=== PATIENT | female | born 1995 | race African-American/Black ===

== ENCOUNTER 2020-04-03 20:27 | Observation (INO) | payer MEDICAID, OTHER ==
[~2020-04-03] VITALS: Ht 167.6 cm; Wt 90.3 kg
[2020-04-03] MEDS ORDERED: PRENTAB40 OR (22:35)
[2020-04-03 22:49] LABS: Amphetamine Screen, Urine NEGATIVE (NEGATIVE); Barbiturate Scree,Urine NEGATIVE (NEGATIVE); Benzodiazephine Screen, Urine NEGATIVE (NEGATIVE); Cannabinoid Screen, Urine NEGATIVE (NEGATIVE); Cocaine Screen, Urine NEGATIVE (NEGATIVE); Opiate Scree,Urine NEGATIVE (NEGATIVE); Phencyclidine Screen, Urine NEGATIVE (NEGATIVE)
[2020-04-03 22:57] LABS: Alcohol, Urine < 3.0 mg/dL (0-10)
== END 2020-04-03 22:49 | disposition home or self-care (01) ==
LOC: LDRP 20:27
PROVIDERS: ADMIT Obstetrics & Gynecology; ATTEND Obstetrics & Gynecology
DX: O36.5930 Maternal care for other known or suspected poor fetal growth, third trimester, not applicable or unspecified (principal); Z3A.38 38 weeks gestation of pregnancy; Z79.899 Other long term (current) drug therapy
CPT/HCPCS: 59025; 76818; 80307; 81002; G0378

== ENCOUNTER 2020-04-06 09:50 | Observation (INO) | payer MEDICAID ==
[~2020-04-06 09:50] MED LIST: PRENTAB40 OR
== END 2020-04-06 11:50 | disposition home or self-care (01) ==
LOC: LDRP 09:50
PROVIDERS: ADMIT Obstetrics & Gynecology; ATTEND Obstetrics & Gynecology
DX: O36.5930 Maternal care for other known or suspected poor fetal growth, third trimester, not applicable or unspecified (principal); Z3A.38 38 weeks gestation of pregnancy
CPT/HCPCS: 59025; 76818; 81002; G0378

== ENCOUNTER 2020-04-10 09:41 | Observation (INO) | payer MEDICAID ==
[2020-04-10 12:52] LABS: Basophils # (auto) 0 10 ^3/uL (0-0.2); Basophils % (auto) 0.3 % (0.0-2.0); Eosinophils # (auto) 0 10 ^3/uL (0-0.8); Eosinophils % (auto) 0.5 % (0.0-7.0); Hematocrit 37.3 % (36.0-46.0); Hemoglobin 12.7 g/dL (12.2-16.2); Lymphocytes # (auto) 1.3 10 ^3/uL (0.4-5.4); Lymphocytes % (auto) 18.4 % (10.0-50.0); Mean Corpuscular Hemoglobin 32.5 pg (28.0-32.0); Mean Corpuscular Volume 95.5 fL (80.0-100.0); Monocytes # (auto) 0.6 10 ^3/uL (0-1.3); Monocytes % (auto) 8.8 % (0.0-12.0); Neutrophils # (auto) 5.1 10 ^3/uL (1.6-8.6); Platelet Count (auto) 205 10^3/uL (140-450); Red Cell Distribution Width 12.8 % (11.8-14.3); White Blood Cell 7.1 10^3/uL (4.4-10.8)
[2020-04-10 13:10] LABS: INR 0.96 (0.9-1.15); Partial Thromboplastin Time 28.2 sec (23.0-31.2)
[2020-04-10 13:11] LABS: Albumin 2.8 g/dL (3.4-5.0); Calcium 8.8 mg/dL (8.5-10.1); Potassium 3.8 mmol/L (3.5-5.1)
[2020-04-10 13:14] LABS: BUN/Creatinine Ratio 11.5; Bilirubin, Total 0.2 mg/dL (0.2-1.0); Total Protein 6.6 g/dL (6.4-8.2); Uric Acid 3.7 mg/dL (2.6-6.0)
[2020-04-10 14:25] LABS: Alcohol, Urine < 3.0 mg/dL (0-10); Amphetamine Screen, Urine NEGATIVE (NEGATIVE); Barbiturate Scree,Urine NEGATIVE (NEGATIVE); Benzodiazephine Screen, Urine NEGATIVE (NEGATIVE); Cannabinoid Screen, Urine NEGATIVE (NEGATIVE); Cocaine Screen, Urine NEGATIVE (NEGATIVE); Opiate Scree,Urine NEGATIVE (NEGATIVE); Phencyclidine Screen, Urine NEGATIVE (NEGATIVE)
[2020-04-10 15:11] LABS: Urine Bacteria FEW /hpf (None Seen); Urine Blood Negative /uL (Negative); Urine Mucus FEW (None Seen); Urine Specific Gravity 1.017 (1.001-1.035); Urine WBC 1 /hpf (0 - 5)
== END 2020-04-10 13:45 | disposition home or self-care (01) ==
LOC: LDRP 09:41
PROVIDERS: ADMIT Obstetrics & Gynecology; ATTEND Obstetrics & Gynecology
DX: O36.5930 Maternal care for other known or suspected poor fetal growth, third trimester, not applicable or unspecified (principal); O62.9 Abnormality of forces of labor, unspecified; Z3A.39 39 weeks gestation of pregnancy; Z87.891 Personal history of nicotine dependence; Z79.899 Other long term (current) drug therapy
CPT/HCPCS: 36415; 59025; 76818; 80053; 80307; 81001; 81002; 84550; 85025; 85610; 85730; G0378

== ENCOUNTER 2020-04-13 08:29 | Observation (INO) | payer MEDICAID ==
[2020-04-13 10:42] LABS: Basophils # (auto) 0 10 ^3/uL (0-0.2); Basophils % (auto) 0.5 % (0.0-2.0); Eosinophils # (auto) 0 10 ^3/uL (0-0.8); Eosinophils % (auto) 0.6 % (0.0-7.0); Hematocrit 37.3 % (36.0-46.0); Lymphocytes # (auto) 1.1 10 ^3/uL (0.4-5.4); Lymphocytes % (auto) 15.9 % (10.0-50.0); Mean Corpuscular Hemoglobin 33.1 pg (28.0-32.0); Mean Corpuscular Hgb Conc. 34.8 g/dL (32.0-36.0); Mean Corpuscular Volume 95.3 fL (80.0-100.0); Monocytes # (auto) 0.6 10 ^3/uL (0-1.3); Monocytes % (auto) 8.9 % (0.0-12.0); Neutrophils % (auto) 74.1 % (37.0-80.0); Nucleated Red Blood Cells % 0.1 %; Platelet Count (auto) 194 10^3/uL (140-450); Red Blood Cells 3.91 10^6/uL (4.0-5.20); Red Cell Distribution Width 12.9 % (11.8-14.3); White Blood Cell 6.7 10^3/uL (4.4-10.8)
[2020-04-13 10:55] LABS: Albumin 2.6 g/dL (3.4-5.0); Calcium 8.6 mg/dL (8.5-10.1); Potassium 3.9 mmol/L (3.5-5.1); Uric Acid 3.8 mg/dL (2.6-6.0)
[2020-04-13 10:57] LABS: INR 0.95 (0.9-1.15); Partial Thromboplastin Time 28.2 sec (23.0-31.2)
[2020-04-13 10:58] LABS: Bilirubin, Total 0.3 mg/dL (0.2-1.0); Total Protein 6.6 g/dL (6.4-8.2)
[2020-04-13 11:31] LABS: Urine Bacteria MOD /hpf (None Seen); Urine Blood Negative /uL (Negative); Urine Hyaline Cast MOD /lpf (0 - 2); Urine Mucus FEW (None Seen); Urine Specific Gravity 1.021 (1.001-1.035); Urine WBC 73 /hpf (0 - 5)
== END 2020-04-13 11:30 | disposition home or self-care (01) ==
LOC: LDRP 08:29
PROVIDERS: ADMIT Specialist; ATTEND Specialist
DX: O36.5930 Maternal care for other known or suspected poor fetal growth, third trimester, not applicable or unspecified (principal); O62.9 Abnormality of forces of labor, unspecified; O12.03 Gestational edema, third trimester; Z87.891 Personal history of nicotine dependence; Z3A.39 39 weeks gestation of pregnancy; Z79.899 Other long term (current) drug therapy
CPT/HCPCS: 36415; 59025; 76818; 80053; 81001; 81002; 84550; 85025; 85610; 85730; G0378

== ENCOUNTER 2020-04-15 10:40 | Inpatient (IN) | payer MEDICAID ==
[~2020-04-15] VITALS: Ht 167.6 cm; Wt 91.2 kg
[2020-04-15] MEDS ORDERED: WITCH HAZEL-GLYCERIN PAD TOP PRN (11:00)
[2020-04-15] MEDS ORDERED: LIDOCAINE 2%HCL (LOCAL ANESTH.) INJ 20ML MDV IJ PRN (11:00)
[2020-04-15] MEDS ORDERED: LACT. RINGERS/OXYTOCIN 20UNITS 1,000 ML IV PRN (11:00)
[2020-04-15] MEDS ORDERED: PHISODERM TOP SOLN 240ML BTL TOP PRN (11:00)
[2020-04-15] MEDS ORDERED: DERMOPLAST 60ML BOTTLE TOP PRN (11:00)
[2020-04-15] MEDS ORDERED: PROMETHAZINE HCL 25 MG/ML 1ML IV PRN (11:00)
[2020-04-15] MEDS ORDERED: BUTORPHANOL TARTRATE 2 MG/1 ML VIAL IV PRN ×2 (11:00)
[2020-04-15 11:55] LABS: Basophils # (auto) 0 10 ^3/uL (0-0.2); Basophils % (auto) 0.6 % (0.0-2.0); Eosinophils # (auto) 0.1 10 ^3/uL (0-0.8); Eosinophils % (auto) 0.8 % (0.0-7.0); Hematocrit 37.3 % (36.0-46.0); Lymphocytes # (auto) 1.3 10 ^3/uL (0.4-5.4); Lymphocytes % (auto) 19.7 % (10.0-50.0); Mean Corpuscular Hemoglobin 33.3 pg (28.0-32.0); Mean Corpuscular Volume 95.2 fL (80.0-100.0); Monocytes # (auto) 0.6 10 ^3/uL (0-1.3); Neutrophils # (auto) 4.6 10 ^3/uL (1.6-8.6); Neutrophils % (auto) 69.9 % (37.0-80.0); Nucleated Red Blood Cells % 0.1 %; Platelet Count (auto) 196 10^3/uL (140-450); Red Blood Cells 3.92 10^6/uL (4.0-5.20); Red Cell Distribution Width 13.1 % (11.8-14.3); White Blood Cell 6.6 10^3/uL (4.4-10.8)
[2020-04-15 11:55] LABS: Urine Bacteria FEW /hpf (None Seen); Urine Blood Negative /uL (Negative); Urine Mucus FEW (None Seen); Urine Specific Gravity 1.024 (1.001-1.035); Urine WBC 2 /hpf (0 - 5)
[2020-04-15 12:10] LABS: INR 0.93 (0.9-1.15); Partial Thromboplastin Time 27.8 sec (23.0-31.2)
[2020-04-15 12:16] LABS: Albumin 2.7 g/dL (3.4-5.0); Calcium 8.6 mg/dL (8.5-10.1); Potassium 4.1 mmol/L (3.5-5.1)
[2020-04-15 12:20] LABS: Alcohol, Urine < 3.0 mg/dL (0-10); Amphetamine Screen, Urine NEGATIVE (NEGATIVE); Barbiturate Scree,Urine NEGATIVE (NEGATIVE); Benzodiazephine Screen, Urine NEGATIVE (NEGATIVE); Cannabinoid Screen, Urine NEGATIVE (NEGATIVE); Cocaine Screen, Urine NEGATIVE (NEGATIVE); Opiate Scree,Urine NEGATIVE (NEGATIVE); Phencyclidine Screen, Urine NEGATIVE (NEGATIVE)
[2020-04-15 12:20] LABS: BUN/Creatinine Ratio 15.5; Bilirubin, Total 0.2 mg/dL (0.2-1.0); Total Protein 6.6 g/dL (6.4-8.2)
[2020-04-15] MEDS: LACTATED RINGER'S 1,000 ML IV SCH ×2 (12:21→20:46)
[2020-04-15] MEDS ORDERED: LABETALOL HCL 200 MG TAB PO ONE (13:30)
[2020-04-15] MEDS: miSOPROStol 50 MCG per PRE-CUT 1/2 TAB PO PRN ×3 (13:32→21:26)
[2020-04-15] MEDS: LABETALOL HCL 200 MG TAB PO SCH (22:12)
[2020-04-16] MEDS: miSOPROStol 50 MCG per PRE-CUT 1/2 TAB PO PRN (01:32)
[2020-04-16] MEDS: LACTATED RINGER'S 1,000 ML IV SCH ×2 (03:59→11:00)
[2020-04-16] MEDS: LACT. RINGERS/OXYTOCIN 20UNITS 1,000 ML IV SCH (07:41)
[2020-04-16] MEDS: LABETALOL HCL 200 MG TAB PO SCH ×2 (09:37→22:22)
[2020-04-16] MEDS ORDERED: DINOPROSTONE 10MG VAG SUPP PV ONE (12:15)
[2020-04-16 23:33] LABS: Basophils # (auto) 0 10 ^3/uL (0-0.2); Basophils % (auto) 0.5 % (0.0-2.0); Eosinophils # (auto) 0 10 ^3/uL (0-0.8); Eosinophils % (auto) 0.3 % (0.0-7.0); Hematocrit 37.2 % (36.0-46.0); Hemoglobin 12.9 g/dL (12.2-16.2); Lymphocytes # (auto) 1.2 10 ^3/uL (0.4-5.4); Lymphocytes % (auto) 17.1 % (10.0-50.0); Mean Corpuscular Hgb Conc. 34.7 g/dL (32.0-36.0); Mean Corpuscular Volume 95.3 fL (80.0-100.0); Monocytes # (auto) 0.7 10 ^3/uL (0-1.3); Neutrophils # (auto) 4.9 10 ^3/uL (1.6-8.6); Neutrophils % (auto) 72.1 % (37.0-80.0); Platelet Count (auto) 200 10^3/uL (140-450); Red Blood Cells 3.91 10^6/uL (4.0-5.20); Red Cell Distribution Width 13.2 % (11.8-14.3); White Blood Cell 6.9 10^3/uL (4.4-10.8)
[2020-04-16 23:48] LABS: Albumin 2.7 g/dL (3.4-5.0); Calcium 8.7 mg/dL (8.5-10.1); Potassium 3.8 mmol/L (3.5-5.1); Uric Acid 4.1 mg/dL (2.6-6.0)
[2020-04-16 23:51] LABS: Bilirubin, Total 0.4 mg/dL (0.2-1.0); Total Protein 6.4 g/dL (6.4-8.2)
[2020-04-17] MEDS: LACT. RINGERS/OXYTOCIN 20UNITS 1,000 ML IV SCH (00:28)
[2020-04-17 01:36] LABS: Urine Bacteria FEW /hpf (None Seen); Urine Blood 3+ /uL (Negative); Urine Mucus FEW (None Seen); Urine Specific Gravity 1.006 (1.001-1.035); Urine WBC 13 /hpf (0 - 5)
[2020-04-17 06:06] LABS: RPR Non Reactive (Non Reactive)
[2020-04-17] MEDS: LABETALOL HCL 200 MG TAB PO SCH (21:37)
[2020-04-18] VITALS (8 sets, daily range): BP systolic 115–143; BP diastolic 65–113
[2020-04-18] MEDS ORDERED: ROPIVACAINE HCL 200 ML EPI SCH ×2 (08:00→09:15)
[2020-04-18] MEDS ORDERED: NALOXONE HCL 0.4 MG/ML VIAL IV ONE ×2 (08:00→09:15)
[2020-04-18] MEDS ORDERED: fentaNYL CITRATE 100 MCG/2 ML VL IV ONE ×2 (08:00→09:15)
[2020-04-18] MEDS ORDERED: LIDOCAINE HCL 2 %PF INJ 10ML AMP IJ ONE ×2 (08:00→13:09)
[2020-04-18] MEDS ORDERED: ePHEDrine SULFATE 50 MG/ML AMP IV ONE ×2 (08:00→09:15)
[2020-04-18] MEDS ORDERED: LACTATED RINGER'S 1,000 ML IV ONE (09:15)
[2020-04-18] MEDS ORDERED: LIDOCAINE 2%HCL (LOCAL ANESTH.) INJ 20ML MDV IJ ONE (09:15)
[2020-04-18] MEDS ORDERED: LACTATED RINGER'S 1,000 ML IV SCH (10:00)
[2020-04-18] MEDS ORDERED: MAGNESIUM SULFATE 40MG/ML 1,000 ML IV SCH (10:00)
[2020-04-18] MEDS: LABETALOL HCL 200 MG TAB PO SCH (10:00)
[2020-04-18] MEDS ORDERED: MAGNESIUM SULFATE 100 ML IV ONE ×2 (10:00→10:07)
[2020-04-18] MEDS ORDERED: MAGNESIUM SULFATE 40MG/ML 1,000 ML IV ONE (10:07)
[2020-04-18 10:53] LABS: Basophils # (auto) 0 10 ^3/uL (0-0.2); Basophils % (auto) 0.6 % (0.0-2.0); Eosinophils # (auto) 0 10 ^3/uL (0-0.8); Eosinophils % (auto) 0.3 % (0.0-7.0); Hematocrit 35.8 % (36.0-46.0); Hemoglobin 12.5 g/dL (12.2-16.2); Lymphocytes % (auto) 12.7 % (10.0-50.0); Mean Corpuscular Hemoglobin 33.3 pg (28.0-32.0); Mean Corpuscular Hgb Conc. 34.8 g/dL (32.0-36.0); Mean Corpuscular Volume 95.8 fL (80.0-100.0); Monocytes # (auto) 0.6 10 ^3/uL (0-1.3); Neutrophils # (auto) 6.2 10 ^3/uL (1.6-8.6); Neutrophils % (auto) 78.4 % (37.0-80.0); Nucleated Red Blood Cells % 0.1 %; Platelet Count (auto) 184 10^3/uL (140-450); Red Blood Cells 3.74 10^6/uL (4.0-5.20); Red Cell Distribution Width 13.5 % (11.8-14.3); White Blood Cell 7.9 10^3/uL (4.4-10.8)
[2020-04-18 10:55] LABS: Urine WBC None Seen /hpf (0 - 5)
[2020-04-18 11:08] LABS: Urine Bacteria NONE SEEN /hpf (None Seen); Urine Blood TRACE /uL (Negative); Urine Mucus FEW (None Seen); Urine Specific Gravity 1.007 (1.001-1.035)
[2020-04-18 11:10] LABS: INR 0.94 (0.9-1.15); Partial Thromboplastin Time 30.2 sec (23.0-31.2)
[2020-04-18 11:11] LABS: Albumin 2.5 g/dL (3.4-5.0); Calcium 8.6 mg/dL (8.5-10.1); Potassium 3.7 mmol/L (3.5-5.1)
[2020-04-18 11:14] LABS: BUN/Creatinine Ratio 6.8; Bilirubin, Total 0.4 mg/dL (0.2-1.0); Uric Acid 4.3 mg/dL (2.6-6.0)
[2020-04-18 11:24] LABS: Protein, Urine 12.3 mg/dL (0.0-11.9)
[2020-04-18] MEDS ORDERED: ceFAZolin 1GM 2 GM in D5W 5% 100 ML IV ONE (15:00)
[2020-04-18] MEDS ORDERED: TETRACAINE 1% INJ 2 ML VIAL IJ ONE (15:10)
[2020-04-18] MEDS ORDERED: oxyTOCIN 10 UNIT/ML 10ML VIAL ONE (15:14)
[2020-04-18] MEDS ORDERED: fentaNYL CITRATE 100 MCG/2 ML VL ONE (15:18)
[2020-04-18] MEDS ORDERED: MORPHINE SULF(PF) 0.5MG/ML 10ML VIAL ONE (15:18)
[2020-04-18] MEDS ORDERED: ceFAZolin 1GM/50ML 100 ML IV ONE (15:19)
[2020-04-18] MEDS ORDERED: ePHEDrine SULFATE 50 MG/ML AMP ONE (15:19)
[2020-04-18] MEDS ORDERED: GLYCOPYRROLATE 0.2 MG/ML 1ML VIAL ONE (15:19)
[2020-04-18] MEDS ORDERED: ONDANSETRON HCL 4 MG/2 ML VIAL ONE (15:19)
[2020-04-18] MEDS ORDERED: KETOROLAC TROMETH 30 MG/ML 1ML VIAL ONE (15:19)
[2020-04-18] MEDS ORDERED: SUCCINYLCHOLINE CHLORIDE 20 MG/ML 10ML VIAL IV ONE (15:26)
[2020-04-18] MEDS ORDERED: LACT. RINGERS/OXYTOCIN 20UNITS 1,000 ML IV ONE (16:30)
[2020-04-18] MEDS ORDERED: MORPHINE SULFATE 4 MG/ML SYR/VIAL IV PRN (16:30)
[2020-04-18] MEDS ORDERED: ONDANSETRON HCL 4 MG/2 ML VIAL IV PRN ×2 (16:30→17:00)
[2020-04-18] MEDS ORDERED: ceFAZolin 1GM/50ML 50 ML IV SCH (16:30)
[2020-04-18] MEDS ORDERED: DexAMETHasone SOD PHOS 10MG/1ML VIAL INJ IV PRN (17:00)
[2020-04-18] MEDS ORDERED: KETOROLAC TROMETH 30 MG/ML 1ML VIAL IV PRN (17:00)
[2020-04-18] MEDS ORDERED: NALOXONE HCL 0.4 MG/ML VIAL IV PRN (17:00)
[2020-04-18] MEDS ORDERED: diphenhdrAMINE HCL 50 MG/1 ML VL IV PRN (17:00)
[2020-04-18] MEDS ORDERED: NALBUPHINE HCL 10 MG/1ml INJECTION SUBCUT ONE (17:00)
--- NOTE | 2020-04-18 18:00 | NUR ---
SPOKE WITH DR GAONA REGARDING MAGNESIUM, ORDER RECEIVED TO HOLD UNTIL DBP >80.
[2020-04-18] MEDS ORDERED: ACETAMINOPHEN IV 1000 MG/100ML (10MG/ML) IV ONE (20:11)
[2020-04-18] MEDS ORDERED: HYDROmorphone HCL 2 MG/ML VL IV PRN (20:11)
[2020-04-18 21:16] LABS: Basophils # (auto) 0 10 ^3/uL (0-0.2); Basophils % (auto) 0.3 % (0.0-2.0); Eosinophils # (auto) 0 10 ^3/uL (0-0.8); Hematocrit 35.8 % (36.0-46.0); Hemoglobin 12.1 g/dL (12.2-16.2); Lymphocytes # (auto) 0.8 10 ^3/uL (0.4-5.4); Lymphocytes % (auto) 6.3 % (10.0-50.0); Mean Corpuscular Hemoglobin 32.7 pg (28.0-32.0); Mean Corpuscular Hgb Conc. 33.9 g/dL (32.0-36.0); Mean Corpuscular Volume 96.4 fL (80.0-100.0); Monocytes # (auto) 0.9 10 ^3/uL (0-1.3); Monocytes % (auto) 7.3 % (0.0-12.0); Neutrophils # (auto) 10.4 10 ^3/uL (1.6-8.6); Neutrophils % (auto) 86.1 % (37.0-80.0); Platelet Count (auto) 185 10^3/uL (140-450); Red Blood Cells 3.71 10^6/uL (4.0-5.20); Red Cell Distribution Width 13.3 % (11.8-14.3)
--- NOTE | 2020-04-18 22:20 | NUR ---
Took over assignment and received report kermitbrittany Bullard
[2020-04-19] VITALS (12 sets, daily range): BP systolic 120–141; BP diastolic 68–88
[2020-04-19] MEDS ORDERED: ONDANSETRON HCL 4 MG/2 ML VIAL IV PRN (02:00)
--- NOTE | 2020-04-19 04:10 | NUR ---
Upon D/C of [facility], assessed some serosanguineous drainage from the dressing of pt incision site. Removed dressing and applied new gauze and tape to incision and notified charge nurse.
--- NOTE | 2020-04-19 04:30 | NUR ---
Ambulation: Patients [facility] D/C, 10cc retrieved from [facility] tolerated well. Patient OOB with standby assistance by RN. Patient ambulated to bathroom with steady gait. . [facility] teaching provided with returned demonstration by patient. Clean gown provided and bed linen changed. Patient ambulated up and down the hallway for 25 minutes and back to bed with steady gait and no distress noted.
[2020-04-19 06:12] LABS: Basophils # (auto) 0 10 ^3/uL (0-0.2); Basophils % (auto) 0.5 % (0.0-2.0); Eosinophils # (auto) 0 10 ^3/uL (0-0.8); Eosinophils % (auto) 0.2 % (0.0-7.0); Hematocrit 33.7 % (36.0-46.0); Hemoglobin 11.7 g/dL (12.2-16.2); Lymphocytes # (auto) 1.3 10 ^3/uL (0.4-5.4); Lymphocytes % (auto) 13.2 % (10.0-50.0); Mean Corpuscular Hemoglobin 33.3 pg (28.0-32.0); Mean Corpuscular Hgb Conc. 34.7 g/dL (32.0-36.0); Mean Corpuscular Volume 96.1 fL (80.0-100.0); Monocytes # (auto) 0.7 10 ^3/uL (0-1.3); Monocytes % (auto) 7.1 % (0.0-12.0); Nucleated Red Blood Cells % 0.1 %; Platelet Count (auto) 186 10^3/uL (140-450); Red Blood Cells 3.51 10^6/uL (4.0-5.20); Red Cell Distribution Width 13.2 % (11.8-14.3); White Blood Cell 10.2 10^3/uL (4.4-10.8)
--- NOTE | 2020-04-19 07:45 | NUR ---
Dr Welsh at bedside assessed drainage on dressing orders to change dressing on PM shift.
--- NOTE | 2020-04-19 07:53 | NUR ---
SBAR DR Irizarry on Drainage on lower left side of dressing amount for 5am and 7am. Dr Welsh to come in assess. Orders to change vitals signs to q4hr. orders to advance to post op day 1 orders.
[2020-04-19] MEDS ORDERED: SIMETHICONE 80 MG CHEWABLE TABLET PO PRN (08:00)
[2020-04-19] MEDS ORDERED: HYDROcodone-ACET 5/325MG TAB PO PRN (08:00)
--- NOTE | 2020-04-19 08:56 | NUR ---
Consultation Patient has a consultation for homeless, patient is currently living in at [facility] [place] [address]. SW spoke with patient. Per Lisa, she resides at [facility] [address] located at [address] [place] [address]. Patient stated that she receives TANF, [employer] and WIC benefits to assist her on taking care of baby and herself. Per patient, her significant partner Mac Cook (father of baby), , is at bedside and actively involved with mother and child life assistant. Per patient, her mother Karyna Cantor ([phone]) will provide transportation post discharge. Patient stated that she has all required supplies to take care of her baby post discharge.
[2020-04-19] MEDS: IBUPROFEN 800 MG TAB PO PRN ×2 (10:11→21:05)
[2020-04-19] MEDS: DOCUSATE SOD 100 MG CAP PO SCH ×2 (12:07→22:08)
[2020-04-19] MEDS: ceFAZolin 1GM/50ML 50 ML IV SCH ×2 (12:49→21:04)
--- NOTE | 2020-04-19 18:10 | NUR ---
Received care and report from Alvaro Walker.
[2020-04-20] VITALS (7 sets, daily range): BP systolic 135–150; BP diastolic 74–95
--- NOTE | 2020-04-20 08:05 | NUR ---
Dr. Welsh called by this RN and informed of serosanguineous drainage noted on dressing. Orders received to remove dressing and assess incision site, leave open to air and dressing may be reapplied if needed.
[2020-04-20] MEDS: DOCUSATE SOD 100 MG CAP PO SCH ×2 (10:00→22:29)
--- NOTE | 2020-04-20 11:30 | NUR ---
Dressing removed, incision noted to be well approximated with 14 lore intact. No drainage or bleeding noted upon removal of dressing. Incision left open to air with afua pad placed on top. Pt educated to let RN know if any pain or drainage is noted at the site or on the afua pad.
[2020-04-20] MEDS: HYDROcodone-ACET 5/325MG TAB PO PRN ×2 (11:55→16:08)
--- NOTE | 2020-04-20 15:25 | NUR ---
Dr Welsh called and informed of Blood pressure trends, informed of last three pressures taken, orders to continue care. No new medications prescribed at this time.
[2020-04-20] MEDS: IBUPROFEN 800 MG TAB PO PRN (22:30)
[2020-04-21 03:00] VITALS: BP 126/72
[2020-04-21 06:47] VITALS: BP 135/82
[2020-04-21] MEDS: DOCUSATE SOD 100 MG CAP PO SCH (10:04)
[2020-04-21 11:15] VITALS: BP 156/101
--- NOTE | 2020-04-21 11:50 | NUR ---
Discharge: Discharge instructions given as ordered. Pt encouraged to follow up with Dr Welsh in one week. Patient received Save your life handout and given instructions. All questions and concerns addressed. Patient verbalized understanding. Medication reconciliation completed and copy given to patient. All required/requested vaccines given and copies of vaccinations given to patient. Patient encouraged to prepare to depart unit.
--- NOTE | 2020-04-21 13:36 | NUR ---
Called in a prescription for Labetalol 100mg BID to [facility] on [address] per Dr Irizarry.
[2020-04-21] MEDS ORDERED: LABETALOL HCL 200 MG TAB PO ONE (13:45)
[2020-04-21 15:12] VITALS: BP 146/95
--- NOTE | 2020-04-21 15:32 | NUR ---
Discharge: Patient ambulates to vehicle with all discharge paperwork and personal belongings, accompanied by staff and family member. No distress noted at time of departure, no adverse changes in status since initial assessment.
== END 2020-04-21 15:32 | disposition home or self-care (01) | DRG 540 ==
LOC: LDRP 10:40
PROVIDERS: ADMIT Specialist; ATTEND Specialist
PROC: 10D00Z1 Extraction of Products of Conception, Low, Open Approach (ICD-10-PCS; principal; 2020-04-18 15:38)
DX: O36.5930 Maternal care for other known or suspected poor fetal growth, third trimester, not applicable or unspecified (principal); O13.4 Gestational [pregnancy-induced] hypertension without significant proteinuria, complicating childbirth; O48.0 Post-term pregnancy; O61.9 Failed induction of labor, unspecified; O62.0 Primary inadequate contractions; O69.81X0 Labor and delivery complicated by cord around neck, without compression, not applicable or unspecified; Z37.0 Single live birth; Z3A.40 40 weeks gestation of pregnancy; Z20.828 Contact with and (suspected) exposure to other viral communicable diseases
CPT/HCPCS: 36415; 59025; 59200; 76805; 76818; 80053; 80307; 81001; 81002; 82570; 83735; 84156; 84550; 85025; 85610; 85730; 86592; 86850; 86900; 86901; 94762; 96360; 96361; 96365; 96366; G0378; J0131; J0330; J0690; J1885; J2405; J2590; J7060